=== PATIENT | male | born 1950 | race Hispanic/Latino ===

== ENCOUNTER 2017-10-09 21:06 | Emergency (ER) | payer MEDICARE ==
[2017-10-09 22:12] LABS: APPEARANCE,URINE Clear (CLEAR); BILIRUBIN,URINE Negative (NEGATIVE); COLOR,URINE Yellow (YELLOW); GLUCOSE, URINE (UA) >=1000 mg/dL (NEGATIVE); KETONES,URINE 15 mg/dL (NEGATIVE); LEUKOCYTE ESTERASE ,URINE Trace (NEGATIVE); NITRATE,URINE Negative (NEGATIVE); OCCULT BLOOD,URINE Small (NEGATIVE); PROTEIN,URINE Negative (NEGATIVE)
[2017-10-09 22:20] LABS: BACTERIA,URINE Rare /HPF (None Seen); RBC,URINE None Seen /HPF (0-1); SQUAMOUS EPITHELIAL CELL,UR None Seen /HPF (0-2)
[2017-10-09] MEDS ORDERED: SODIUM CHLORIDE 0.9% 500ML 500 ML IV ONE (22:22)
[2017-10-09] MEDS ORDERED: INSULIN HUMULIN R 100 UNIT/ML 3ML ONE (22:23)
[2017-10-09 22:30] LABS: BASOPHILS % (AUTO) 1.3 % (0.0-5.0); EOSINOPHILS % (AUTO) 1.8 % (0.0-8.0); HEMATOCRIT 46.9 % (42-54); LYMPHOCYTES % (AUTO) 21.9 % (21.0-51.0); MEAN CORPUSCULAR HEMOGLOBIN 30.6 pg (27.0-33.0); MEAN CORPUSCULAR HGB CONC 34.7 g/dL (32.0-36.0); MEAN CORPUSCULAR VOLUME 88.3 fL (79-99); MONOCYTES % (AUTO) 8.6 % (3.0-13.0); NEUTROPHILS % (AUTO) 66.4 % (40.0-77.0); PLATELET COUNT (AUTO) 184 K/uL (130-400); RED BLOOD CELL COUNT(AUTO) 5.31 MIL/uL (4.50-6.20); RED CELL DISTRIBUTION WIDTH 13.6 % (11.0-15.5); WHITE BLOOD COUNT (AUTO) 7.3 K/uL (4.8-10.8)
[2017-10-09 23:01] LABS: CREATININE 0.7 mg/dL (0.5-1.5); POTASSIUM 3.7 mmol/L (3.5-5.1)
== END 2017-10-10 00:24 | disposition home or self-care (01) ==
LOC: EDH 21:06
DX: N48.1 Balanitis (principal); N30.00 Acute cystitis without hematuria; E11.65 Type 2 diabetes mellitus with hyperglycemia
CPT/HCPCS: 36415; 80048; 81001; 82009; 82948 ×2; 85025; 87486; 87797; 96361; 96374; 99284; J1815; J7040

== ENCOUNTER → 2020-08-08 | Emergency (ER) | payer MEDICARE, OTHER ==
[~2020-08-08] MED LIST: ACETAMINOPHEN-CODEINE 300/30MG TAB ONE
== END ==
LOC: EDH 16:56
DX: S00.83XA Contusion of other part of head, initial encounter (principal); S80.212A Abrasion, left knee, initial encounter; S80.211A Abrasion, right knee, initial encounter; S50.812A Abrasion of left forearm, initial encounter; R07.89 Other chest pain; M25.551 Pain in right hip; M25.552 Pain in left hip; I10 Essential (primary) hypertension; E11.9 Type 2 diabetes mellitus without complications; V02.99XA Pedestrian with other conveyance injured in collision with two- or three-wheeled motor vehicle, unspecified whether traffic or nontraffic accident, initial encounter; Y93.89 Activity, other specified; Y92.512 Supermarket, store or market as the place of occurrence of the external cause; Y99.8 Other external cause status
CPT/HCPCS: 70450; 71045; 72125; 72170; 93005

== ENCOUNTER 2021-04-23 19:29 | Emergency (ER) | payer OTHER ==
[~2021-04-23] VITALS: Ht 177.8 cm; Wt 85.7 kg
[2021-04-23 20:24] LABS: BASOPHILS % (AUTO) 0.6 % (0.0-5.0); EOSINOPHILS % (AUTO) 1.4 % (0.0-8.0); HEMATOCRIT 42.7 % (42-54); LYMPHOCYTES % (AUTO) 5.9 % (21.0-51.0); MEAN CORPUSCULAR HEMOGLOBIN 30.2 pg (27.0-33.0); MEAN CORPUSCULAR HGB CONC 34.2 g/dL (32.0-36.0); MEAN CORPUSCULAR VOLUME 88.2 fL (79-99); MONOCYTES % (AUTO) 8.1 % (3.0-13.0); NEUTROPHILS % (AUTO) 82.6 % (40.0-77.0); PLATELET COUNT (AUTO) 141 K/uL (130-400); RED BLOOD CELL COUNT(AUTO) 4.84 MIL/uL (4.50-6.20); RED CELL DISTRIBUTION WIDTH 12.8 % (11.0-15.5)
[2021-04-23] MEDS ORDERED: ACETAMINOPHEN 325 MG TAB PO ONE (20:30)
[2021-04-23 20:32] LABS: INR 1.07 (0.85-1.15); PROTHROMBIN TIME 11.6 SEC (9.6-11.6)
[2021-04-23 20:34] LABS: PARTIAL THROMBOPLASTIN TIME 29.1 SEC (26.3-35.5)
[2021-04-23 20:35] LABS: CREATININE 0.8 mg/dL (0.5-1.5); POTASSIUM 3.9 mmol/L (3.5-5.1)
[2021-04-23 20:41] LABS: ALBUMIN 3.7 g/dL (3.5-5.0); BILIRUBIN,TOTAL 0.6 mg/dL (0.2-1.0); TOTAL PROTEIN, SERUM 6.9 g/dL (6.0-8.3)
[2021-04-23 21:07] LABS: APPEARANCE,URINE Clear (CLEAR); BILIRUBIN,URINE Negative (NEGATIVE); COLOR,URINE Yellow (YELLOW); GLUCOSE, URINE (UA) >=1000 mg/dL (NEGATIVE); KETONES,URINE 40 mg/dL (NEGATIVE); LEUKOCYTE ESTERASE ,URINE Negative (NEGATIVE); NITRATE,URINE Negative (NEGATIVE); OCCULT BLOOD,URINE Negative (NEGATIVE); PH,URINE 5.5 (5.0-8.0); PROTEIN,URINE POS 1+ mg/dL (NEGATIVE)
[2021-04-23 21:11] LABS: B-TYPE NATRIURETIC PEPTIDE 34 pg/mL (0-100)
[2021-04-23 21:31] LABS: BACTERIA,URINE Rare /HPF (None Seen); MUCUS,URINE Few LPF (None Seen); RBC,URINE 0-1 /HPF (0-1); SQUAMOUS EPITHELIAL CELL,UR None Seen /HPF (0-2)
[2021-04-23 21:32] LABS: WBC,URINE 0-1 /HPF (0-1)
[2021-04-23] MEDS ORDERED: 0.9%NACL 1000ML 1,000 ML IV ONE (22:00)
[2021-04-23 22:24] VITALS: BP 154/86
[2021-04-23] MEDS ORDERED: ALBU8.5H8 IH (22:29)
[2021-04-23] MEDS ORDERED: IVER3TAB PO (22:29)
[2021-04-23] MEDS ORDERED: BUDE8.435 NS (22:29)
[2021-04-23] MEDS ORDERED: DOXY-336 PO (22:29)
[2021-04-23] MEDS ORDERED: BENZ-39 PO (22:29)
[2021-04-23] MEDS ORDERED: DOXYCYCLINE HYCLATE 100 MG TABLET PO SCH (22:30)
[2021-04-23] MEDS ORDERED: BENZONATATE 100 MG CAPSULE PO SCH (22:30)
== END 2021-04-23 23:09 | disposition home or self-care (01) ==
LOC: EDH 19:29
DX: U07.1 COVID-19 (principal); J12.82 Pneumonia due to coronavirus disease 2019; E11.65 Type 2 diabetes mellitus with hyperglycemia; I10 Essential (primary) hypertension; Z87.891 Personal history of nicotine dependence
CPT/HCPCS: 36415; 71045; 80053; 81001; 82550; 83605; 83880; 84145; 84484; 85025; 85378; 85610; 85730; 86140; 87040 ×2; 87635; 87804 ×2; 87880; 93005; 96360; 99285; C9803; J7030

== ENCOUNTER 2021-09-25 15:25 | Emergency (ER) | payer OTHER ==
[~2021-09-25] VITALS: Ht 177.8 cm; Wt 84.4 kg
[~2021-09-25 15:25] MED LIST changes: -ACETAMINOPHEN-CODEINE 300/30MG TAB ONE; +ALBU8.5H8 IH; +BENZ-39 PO; +BUDE8.435 NS; +DOXY-336 PO; +IVER3TAB PO
[2021-09-25 15:27] VITALS: BP 160/85
[2021-09-25] MEDS ORDERED: HYDROCODONE/ACETAMINOPHEN 5/325 MG TAB PO ONE (17:00)
[2021-09-25] MEDS ORDERED: KETOROLAC 15MG/ML VIAL (15MG/ML) IM ONE (17:00)
[2021-09-25] MEDS ORDERED: CYCL10TA16 PO (17:57)
[2021-09-25] MEDS ORDERED: IBUP-2070 PO (17:57)
[2021-09-25] MEDS ORDERED: OCTYL 2-CYANOACRYLATE 1 EACH TP SCH (18:00)
== END 2021-09-25 18:10 | disposition home or self-care (01) ==
LOC: EDH 15:25
DX: S60.512A Abrasion of left hand, initial encounter (principal); S60.511A Abrasion of right hand, initial encounter; M54.2 Cervicalgia; M54.9 Dorsalgia, unspecified; E11.9 Type 2 diabetes mellitus without complications; I10 Essential (primary) hypertension; Z79.1 Long term (current) use of non-steroidal anti-inflammatories (NSAID); W18.39XA Other fall on same level, initial encounter; Y93.89 Activity, other specified; Y92.89 Other specified places as the place of occurrence of the external cause; Y99.8 Other external cause status
CPT/HCPCS: 70450; 72125; 74176; 96372; 99284; J1885

== ENCOUNTER 2021-11-09 05:45 | Emergency (ER) | payer OTHER ==
[~2021-11-09] VITALS: Ht 177.8 cm; Wt 80.3 kg
[~2021-11-09 05:45] MED LIST changes: +CYCL10TA16 PO; +IBUP-2070 PO
[2021-11-09 06:06] VITALS: BP 137/75
[2021-11-09] MEDS ORDERED: ALBUHFA IH (06:38)
[2021-11-09] MEDS ORDERED: BENZ-39 PO (06:38)
[2021-11-09] MEDS ORDERED: DOXY-336 PO (06:38)
[2021-11-09] MEDS ORDERED: ALBUTEROL INHALER 90MCG/INH IH ONE (06:47)
== END 2021-11-09 06:51 | disposition home or self-care (01) ==
LOC: EDH 05:45
DX: J20.8 Acute bronchitis due to other specified organisms (principal); B96.89 Other specified bacterial agents as the cause of diseases classified elsewhere; Z20.822 Contact with and (suspected) exposure to COVID-19; E11.9 Type 2 diabetes mellitus without complications; Z79.1 Long term (current) use of non-steroidal anti-inflammatories (NSAID)
CPT/HCPCS: 99283; 87635; 87880; 87804 ×2; C9803

== ENCOUNTER 2022-05-20 09:11 | Emergency (ER) | payer OTHER ==
[~2022-05-20] VITALS: Ht 177.8 cm; Wt 84.8 kg
[~2022-05-20 09:11] MED LIST changes: +ALBUHFA IH; -DOXY-336 PO; +DOXY-469 PO
[2022-05-20 09:17] VITALS: BP 122/55
[2022-05-20] MEDS ORDERED: KETOROLAC 30MG VIAL (30MG/ML) IM STA (11:54)
[2022-05-20] MEDS ORDERED: NAPR375T6 PO (11:58)
== END 2022-05-20 12:08 | disposition home or self-care (01) ==
LOC: EDH 09:11
DX: M94.0 Chondrocostal junction syndrome [Tietze] (principal); R07.81 Pleurodynia; E11.9 Type 2 diabetes mellitus without complications; Z79.1 Long term (current) use of non-steroidal anti-inflammatories (NSAID); W18.2XXA Fall in (into) shower or empty bathtub, initial encounter; Y93.E1 Activity, personal bathing and showering; Y92.89 Other specified places as the place of occurrence of the external cause; Y99.8 Other external cause status
CPT/HCPCS: 71100; 93005; 96372

== ENCOUNTER 2024-02-20 20:25 | Emergency (ER) | payer OTHER ==
[~2024-02-20] VITALS: Ht 177.8 cm; Wt 83.0 kg
[~2024-02-20 20:25] MED LIST changes: -DOXY-469 PO; +DOXY100C61 PO; +NAPR-1505 PO
[2024-02-20] MEDS: ketOROlac 60 MG VIAL (30MG/ML) IM ONE (21:11)
[2024-02-20] MEDS: morPHINE 4 MG SYG IM ONE (21:11)
[2024-02-20] MEDS ORDERED: HYDR-4377 PO (22:02)
[2024-02-20] MEDS ORDERED: MELO-108 PO (22:02)
[2024-02-20 22:10] VITALS: BP 138/74; PULSE 74; RESP 16; TEMP 98.4; O2SAT 97
== END 2024-02-20 22:11 | disposition home or self-care (01) ==
LOC: EDH 20:25
DX: M16.11 Unilateral primary osteoarthritis, right hip (principal); E11.9 Type 2 diabetes mellitus without complications; K21.9 Gastro-esophageal reflux disease without esophagitis; Z79.899 Other long term (current) drug therapy
CPT/HCPCS: 99284; 73502; 96372 ×2; J2270; J1885